=== PATIENT | male | born 1950 | race Caucasian/White ===

== ENCOUNTER 2017-04-02 19:30 | Emergency (ER) | payer BC, OTHER ==
[~2017-04-02] VITALS: Ht 170.2 cm; Wt 62.2 kg
[~2017-04-02 19:30] MED LIST: LISI20TA3 PO; MULT-506 PO; PRLSR20 PO
[2017-04-02 19:34] VITALS: TEMP 36.4
[2017-04-02 21:23] VITALS: Ht 170.2 cm; Wt 62.2 kg
[2017-04-02 21:44] LABS: BASO % 0.4 %; BASO ABS # 0.03 K/uL (0-0.2); EOS % 4.3 %; EOS ABS # 0.34 K/uL (0-0.5); HEMATOCRIT 43.8 % (42-52); HEMOGLOBIN 15.2 g/dL (14.0-18.0); IG# 0.03 K/uL (0.00-0.02); LYMPH % 25.4 %; MEAN CELL VOLUME 93.2 fL (80-100); MEAN CORPUSCULAR HEMOGLOBIN 32.3 pg (25-34); MEAN CORPUSCULAR HGB CONC 34.7 g/dl (32-36); MEAN PLATELET VOLUME 11.3 fL (7.4-10.4); MONO % 15.9 %; MONO ABS # 1.25 K/uL (0.11-0.59); NEUT % 53.6 %; NEUT ABS # 4.23 K/uL (1.4-6.5); PLATELET COUNT 179 K/uL (130-400); RED CELL DISTRIBUTION WIDTH CV 13.8 % (11.5-14.5); RED CELL DISTRIBUTION WIDTH SD 47.6 fL (36.4-46.3); WHITE BLOOD COUNT 7.88 K/uL (4.8-10.8)
[2017-04-02 21:57] LABS: PTT PATIENT 27.3 SECONDS (21.0-31.0)
[2017-04-02 21:59] VITALS: O2SAT 98
[2017-04-02 22:01] LABS: ALBUMIN 3.4 gm/dl (3.4-5.0); ALT/SGPT 28 U/L (12-78); AST/SGOT 22 U/L (15-37); BLOOD UREA NITROGEN 14 mg/dl (7-18); CALCIUM 8.5 mg/dl (8.5-10.1); CARBON DIOXIDE 28 mmol/L (21-32); CREATININE 0.97 mg/dl (0.60-1.40); GLUCOSE 88 mg/dl (70-99); SODIUM 140 mmol/L (136-145)
[2017-04-02] MEDS ORDERED: DOXY1LIQ PO (22:08)
[2017-04-02] MEDS ORDERED: FLM4 PO (22:08)
[2017-04-02] MEDS ORDERED: ASPI81TA28 PO (22:08)
--- NOTE | 2017-04-02 22:11 | EMERGENCY ROOM VISIT NOTE ---
History Report prepared by Quique: Tobias Fritz Under the Supervision of: Dr. Jasvir Avila M.D. 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 states it started a couple weeks ago, talked with daughter today about it and she told him to come in. History of Present Illness The patient is a 66 year old male who presents to the Emergency Room with complaints of intermittent fluttering in his chest for two weeks. He reports fluttering lasts for less than a minute and is random. He is unsure of how often the symptoms occur. He is unsure if it is worsened with exertion or resting. He denies any specific chest pain or chest tightness. He states that he spoke with his daughter who recommended that he come to the ED to be evaluated. His daughter is a PA. He denies any lightheadedness. He reports getting dizzy when standing up, though it is not associated with the fluttering. He notes that he has had dizziness with standing for several years. He reports a runny nose that began this week. He has a history of hypertension. He has a history of cardiac catheterization 15 years ago. He reports a recent stress test. He has a history of pancreatitis and was hospitalized for five days. Pt denies LOC, headache, fevers, chills, diaphoresis, visual changes, neck pain, chest pain, breathing difficulties, nausea, vomiting, abdominal pain , back pain, melena, hematochezia, urinary symptoms, numbness, weakness, leg swelling, rash, or other complaints. Source of History: patient Onset: two weeks Position: chest Quality: other (fluttering) Timing: intermittent Associated Symptoms: No chest pain Note: He denies any lightheadedness. He reports a runny nose. Review of Systems See HPI for pertinent positives and negatives. A total of ten systems were reviewed and were otherwise negative. Past Medical & Surgical Medical Problems: (1) CAD (coronary artery disease) (2) HTN (hypertension) (3) Pancreatitis (4) Ulcer Surgical Problems: (1) Hx of cholecystectomy Family History Diabetes mellitus Gallbladder disease Heart disease Hypertension Social History Smoking Status: Never Smoker Smokeless Tobacco Use: No Alcohol Use: occasionally Drug Use: none Marital Status: Housing Status: lives with significant other Occupation Status: unemployed Current/Historical Medications Scheduled Aspirin (Aspirin Ec), 81 MG PO DAILY Doxylamine-Dm (Vicks Nyquil Cough), 1 DOSE PO PRN UD Lisinopril (Prinivil), 20 MG PO QPM Omeprazole (Prilosec), 20 MG PO QAM Tamsulosin HCl (Tamsulosin HCl), 0.4 MG PO QPM Allergies Coded Allergies: Atorvastatin (Unverified Allergy, Mild, MUSCLE PAIN, 05/15/15) Physical Exam Vital Signs Date Time Temp Pulse Resp B/P (MAP) Pulse Ox O2 Delivery O2 Flow Rate FiO2 04/02/17 23:26 58 18 154/92 98 Room Air 04/02/17 21:59 98 Room Air 04/02/17 21:58 62 18 125/87 98 Room Air 04/02/17 21:51 57 04/02/17 19:34 36.4 66 18 191/95 98 Room Air Physical Exam GENERAL: Awake, alert, well-appearing, in no distress HENT: Normocephalic, atraumatic. Oropharynx unremarkable. EYES: Normal conjunctiva. Sclera non-icteric. NECK: Supple. No nuchal rigidity. FROM. No masses. RESPIRATORY: Clear to auscultation. No wheezes. CARDIAC: Normal rate. Normal rhythm. No murmurs. No rubs. Extremities warm and well perfused. Pulses equal. No JVD. GI: Soft, non-distended. No tenderness to palpation. No rebound or guarding. No masses. RECTAL: Deferred. MUSCULOSKELETAL: Atraumatic. Chest examination reveals no tenderness. The back is symmetrical on inspection without obvious abnormality. There is no CVA tenderness to palpation. No joint edema. LOWER EXTREMITIES: Calves are equal size bilaterally and non-tender. No edema. No discoloration. NEURO: Normal sensorium. No sensory or motor deficits noted. SKIN: No rash or jaundice noted. Medical Decision & Procedures ER Provider Diagnostic Interpretation: Radiology results as stated below per my review and radiologist interpretation: CHEST ONE VIEW PORTABLE CLINICAL HISTORY: Weakness. COMPARISON STUDY: Chest CT January 24, 2010 FINDINGS: Lung volumes are normal. There is no consolidation or evidence for pulmonary edema. No pneumothorax or pleural effusion is noted. The cardiac size is normal. Mediastinal contours are normal. IMPRESSION: No acute cardiopulmonary findings. Electronically signed by: Francisco Valverde M.D. 04/02/2017 10:22 PM Dictated Date/Time: 04/02/2017 10:[address] CHEST with Contrast: No pulmonary embolus. No thoracic aortic dissection or aneurysm. Dependent atelectasis. Otherwise, lungs are unremarkable. Heart and pericardium are unremarkable. No significant adenopathy. No acute osseous abnormality. Radiologist: Gil Meade MD Study ready at 23:18 and initial results transmitted at 23:20 Laboratory Results 04/02/17 21:25 Red Blood Count 4.70, Mean Corpuscular Volume 93.2, Mean Corpuscular Hemoglobin 32.3, Mean Corpuscular Hemoglobin Concent 34.7, Mean Platelet Volume 11.3, Neutrophils (%) (Auto) 53.6, Lymphocytes (%) (Auto) 25.4, Monocytes (%) (Auto) 15.9, Eosinophils (%) (Auto) 4.3, Basophils (%) (Auto) 0.4, Neutrophils # (Auto ) 4.23, Lymphocytes # (Auto) 2.00, Monocytes # (Auto) 1.25, Eosinophils # (Auto ) 0.34, Basophils # (Auto) 0.03 04/02/17 21:25 Test 04/02/17 21:25 04/02/17 21:52 White Blood Count 7.88 K/uL (4.8-10.8) Red Blood Count 4.70 M/uL (4.7-6.1) Hemoglobin 15.2 g/dL (14.0-18.0) Hematocrit 43.8 % (42-52) Mean Corpuscular Volume 93.2 fL (80-100) Mean Corpuscular Hemoglobin 32.3 pg (25-34) Mean Corpuscular Hemoglobin Concent 34.7 g/dl (32-36) Platelet Count 179 K/uL (130-400) Mean Platelet Volume 11.3 fL (7.4-10.4) Neutrophils (%) (Auto) 53.6 % Lymphocytes (%) (Auto) 25.4 % Monocytes (%) (Auto) 15.9 % Eosinophils (%) (Auto) 4.3 % Basophils (%) (Auto) 0.4 % Neutrophils # (Auto) 4.23 K/uL (1.4-6.5) Lymphocytes # (Auto) 2.00 K/uL (1.2-3.4) Monocytes # (Auto) 1.25 K/uL (0.11-0.59) Eosinophils # (Auto) 0.34 K/uL (0-0.5) Basophils # (Auto) 0.03 K/uL (0-0.2) RDW Standard Deviation 47.6 fL (36.4-46.3) RDW Coefficient of Variation 13.8 % (11.5-14.5) Immature Granulocyte % (Auto) 0.4 % Immature Granulocyte # (Auto) 0.03 K/uL (0.00-0.02) Prothrombin Time 11.0 SECONDS (9.0-12.0) Prothromb Time International Ratio 1.0 (0.9-1.1) Activated Partial Thromboplast Time 27.3 SECONDS (21.0-31.0) Partial Thromboplastin Ratio 1.1 Anion Gap 6.0 mmol/L (3-11) Est Creatinine Clear Calc Drug Dose 65.0 ml/min Estimated GFR () 93.2 Estimated GFR (Non- 80.5 BUN/Creatinine Ratio 14.7 (10-20) Calcium Level 8.5 mg/dl (8.5-10.1) Magnesium Level 2.0 mg/dl (1.8-2.4) Total Bilirubin 0.2 mg/dl (0.2-1) Direct Bilirubin < 0.1 mg/dl (0-0.2) Aspartate Amino Transf (AST/SGOT) 22 U/L (15-37) Alanine Aminotransferase (ALT/SGPT) 28 U/L (12-78) Alkaline Phosphatase 87 U/L (45-117) Total Creatine Kinase 58 U/L (39-308) Creatine Kinase MB 1.1 ng/ml (0.5-3.6) Creatine Kinase MB Ratio 1.9 (0-3.0) Troponin I < 0.015 ng/ml (0-0.045) Total Protein 6.7 gm/dl (6.4-8.2) Albumin 3.4 gm/dl (3.4-5.0) Thyroid Stimulating Hormone (TSH) 4.180 uIu/ml (0.300-4.500) Bedside D-Dimer > 450 ng/mlFEU (0-450) Laboratory results reviewed by me ECG Per My Interpretation Indication: chest pain Rate (beats per minute): 64 Rhythm: sinus rhythm Findings: 1st degree AV block, no acute ischemic change, no ectopy Change: Patient's electrocardiogram was interpreted by me. ED Course 2129: The patient was evaluated in room C1B. A complete history and physical exam was performed. 2221: I reassessed the patient at this time. He is resting comfortably 2336: I reassessed the patient at this time. He is feeling better and resting comfortably. Cardiac monitoring showed PVCs. I discussed the results and treatment plan with the patient. I answered all pertaining questions that he had. He expressed understanding and verbalized agreement. The patient will be discharged home. Medical Decision Triage Nursing notes reviewed. The patient's presentation and history were concerning for palpitations. Etiologies such as ectopy, cardiac dysrhythmia, electrolyte abnormality, thyroid dysfunction, pulmonary embolism, infection, gastrointestinal, as well as others were entertained. The patient was evaluated. Clinically looks well. ECG was performed and was unremarkable. Blood work was obtained. Chest x-ray was negative. His CBC and chemistry panel were unremarkable. The patient's d-dimer was elevated. Chest CT ordered. The patient's chest CT was negative. On reassessment he was doing well. Cardiac monitoring was reviewed and very infrequent PVCs were noted. I did discuss this with the patient. He notes his symptoms are very fleeting. He does not have any other associated symptoms. He denied any chest pain. He has a follow-up scheduled with his elevator service mechanic. As his blood work and imaging look excellent at this time and PVCs were noted outpatient follow-up was recommended. If he develops any chest pain or worsening symptoms he will come back to the Emergency Room. I did discuss slow and fast heart rates with him and his . The patient was provided a copy of his results for follow-up. I gave my usual and customary discussion regarding this issue. By the evaluation outlined above other emergent etiologies such as those listed in the differential, as well as others, were deemed relatively unlikely. The patient was educated about the findings as listed above. All questions were answered and the patient was pleased with the treatment. Return instructions were outlined and the patient was discharged in stable condition. The patient was referred to his elevator service mechanic for follow-up for a recheck of the current condition. Medication Reconcilliation Current Medication List: was personally reviewed by me Blood Pressure Screening Patient's blood pressure: Elevated blood pressure Blood pressure disposition: Referred to PCP Impression Primary Impression: Palpitations Additional Impression: PVC (premature ventricular contraction) Scribe Attestation The scribe's documentation has been prepared under my direction and personally reviewed by me in its entirety. I confirm that the note above accurately reflects all work, treatment, procedures, and medical decision making performed by me. Departure Information Dispostion Home / Self-Care Referrals Nael Arteaga D.O. (PCP) Forms HOME CARE DOCUMENTATION FORM, IMPORTANT VISIT INFORMATION, WORK / SCHOOL INSTRUCTIONS Patient Instructions [facility] Additional Instructions PALPITATIONS(RAPID OR SKIPPING HEARTBEAT) INSTRUCTIONS: Premature ventricular contractions or PVCs noted on your cardiac monitoring in the Emergency Room. Discussed this with your elevator service mechanic. Rest and drink plenty of fluids as tolerated. Continue current medications. Resume normal activities once your symptoms resolve. Eat a heart healthy, low fat, low cholesterol diet. Return to the ER immediately for passing out, chest pain, abdominal pain, vomiting, fevers, difficulty breathing, worsening of your condition, or as needed. Follow up with your elevator service mechanic as scheduled for a recheck of your current condition. Problem Qualifiers
[2017-04-02 22:12] LABS: ALKALINE PHOSPHATASE 87 U/L (45-117); CKMB 1.1 ng/ml (0.5-3.6); TOTAL PROTEIN 6.7 gm/dl (6.4-8.2)
--- NOTE | 2017-04-02 22:23 | DIAGNOSTIC IMAGING REPORT ---
CHEST ONE VIEW PORTABLE CLINICAL HISTORY: Weakness. COMPARISON STUDY: Chest CT January 24, 2010 FINDINGS: Lung volumes are normal. There is no consolidation or evidence for pulmonary edema. No pneumothorax or pleural effusion is noted. The cardiac size is normal. Mediastinal contours are normal. IMPRESSION: No acute cardiopulmonary findings. Electronically signed by: Francisco Valverde M.D. 04/02/2017 10:22 PM Dictated Date/Time: 04/02/2017 10:21 PM
[2017-04-02] MEDS ORDERED: OPTIRAY 320 IV PRN (23:00)
[2017-04-02 23:26] VITALS: BP 154/92; PULSE 58; O2SAT 98
--- NOTE | 2017-04-03 07:57 | DIAGNOSTIC IMAGING REPORT ---
CHEST CTA for PULMONARY ARTERIES CT DOSE: 244.55 mGy.cm HISTORY: Elevated d-dimer. Recent surgery. Assess for pulmonary embolus. TECHNIQUE: Multiaxial CT images of the chest were performed following the intravenous administration of contrast to evaluate the pulmonary arteries. Maximal intensity projection images were also obtained. A dose lowering technique was utilized adhering to the principles of ALARA. COMPARISON STUDY: Chest 04/02/2017. Chest CT 01/24/2010. FINDINGS: Limited views of the upper abdomen demonstrate a normal liver and spleen. The adrenal glands are unremarkable. No mediastinal or hilar lymphadenopathy. The opacified thoracic aorta shows no evidence for dissection. The heart is normal in size. No pleural or pericardial effusions area no filling defects within the pulmonary arteries to suggest pulmonary embolus. No fractures within the visualized osseous structures. The central airways are patent. No pneumothorax. The lungs are clear. IMPRESSION: No evidence for pulmonary embolus. Electronically signed by: Dallas Hernandez M.D. 04/03/2017 7:56 AM Dictated Date/Time: 04/03/2017 7:50 AM
== END 2017-04-02 23:35 | disposition home or self-care (01) ==
LOC: C.EDB 19:31 → C.EDC 23:35
DX: R00.2 Palpitations (principal); I49.3 Ventricular premature depolarization; I25.10 Atherosclerotic heart disease of native coronary artery without angina pectoris; I10 Essential (primary) hypertension; Z83.3 Family history of diabetes mellitus; Z82.49 Family history of ischemic heart disease and other diseases of the circulatory system; Z79.82 Long term (current) use of aspirin